=== PATIENT | female | born 1995 | race Caucasian/White ===

== ENCOUNTER 2019-05-10 16:55 | Emergency (ER) | payer OTHER ==
[2019-05-10 17:09] VITALS: BP 105/67; PULSE 69; TEMP 98; BMI 16.8
[2019-05-10] MEDS ORDERED: ONDANSETRON *ODT* 4 MG TABLET SL ONE (17:33)
--- NOTE | 2019-05-10 17:33 | PDOC ---
History of Present Illness - General Chief Complaint: Headache Stated Complaint: HEADACHE, Head contusion Time Seen by Provider: 05/10/19 17:33 - History of Present Illness Initial Comments: 05/10/19 17:33 CHIEF COMPLAINT: headache HISTORY OF PRESENT ILLNESS: 23 yo F with no significant PMH presents to ED with headache and nausea s/p head injury 2 days ago. Patient reports she was "playing around and pretending to hit my head with a meat tenderizer, but then I actually hit my head really hard with it." She reports the pain began two days ago, worsened yesterday, and today she is feeling nauseous , has double vision, and has pain is radiating down the right side of her neck. No recent travel or sick contacts. PAST MEDICAL HISTORY: Denies past medical history FAMILY HISTORY: Denies SOCIAL HISTORY: Denies tobacco, alcohol, illicit drug use. SURGICAL HISTORY: Denies ALLERGIES: opioids REVIEW OF SYSTEMS General/Constitutional: Denies fever or chills. Denies weakness, weight change. HEENT: "I feel like I have double vision." Denies ear pain or discharge. Denies sore throat. Cardiovascular: Denies chest pain or shortness of breath. Respiratory: Denies cough, wheezing, or hemoptysis. Gastrointestinal: Nausea today. Denies vomiting, diarrhea or constipation. Denies rectal bleeding. Genitourinary: Denies dysuria, frequency, or change in urination. Musculoskeletal: Denies joint or muscle swelling or pain. Denies neck or back pain. Skin and breasts: Denies rash or easy bruising. Neurologic: Denies headache, vertigo, loss of consciousness, or loss of sensation. Psychiatric: Denies depression or anxiety. PHYSICAL EXAM General Appearance: Well-appearing, appropriately dressed. No apparent distress , no intoxication. HEENT: EOMI, PERRLA, normal ENT inspection, normal voice, TMs normal, pharynx normal. No conjunctival pallor. No photophobia, scleral icterus. Neck: Supple. Trachea midline. No tenderness, rigidity, carotid bruit, stridor , lymphadenopathy, or thyromegaly. Respiratory/Chest: Lungs CTAB. No shortness of breath, chest tenderness, respiratory distress, accessory muscle use. No crackles, rales, rhonchi, stridor , wheezing, dullness Cardiovascular: RRR. S1, S2. No JVD, murmur, bradycardia, tachycardia. Vascular Pulses: Dorsalis-Pedis (R): 2+, Dorsalis-Pedis (L): 2+ Gastrointestinal/Abdominal: Normal bowel sounds. Abdomen soft, non-distended. No tenderness or rebound tenderness. No organomegaly, pulsatile mass, guarding , hernia, hepatomegaly, splenomegaly. Lymphatic: No adenopathy, tenderness. Musculoskeletal/Extremities: Normal inspection. FROM of all extremities, normal capillary refill. Pelvis Stable. No CVA tenderness. No tenderness to extremities, pedal edema, swelling, erythema or deformity. Integumentary: Appropriate color, dry, warm. No cyanosis, erythema, jaundice or rash Neurologic: plastic tile setter II-XII intact. Fully oriented, alert. Appropriate mood/affect. Motor strength 5/5. No appreciable EOM palsy, facial droop or sensory deficit. A&Ox3, follow commands, respond appropriately CN2-12: conjugate gaze, pupil round, equal and reactive to light. Visual field full to confrontation. EOMI without nystagmus, pursuit is smooth without saccade. Facial sensation and muscle activation intact bilaterally. Hearing intact bilaterally. Palate elevate symmetrically. Shoulder shrug and neck turn full strength. Tongue protrude midline. Motor: UE and LE strength 5/5 throughout bilaterally. Muscle tone and bulk normal. L shoulder abd 5/5 elbow F/E 5/5 wrist F/E 5/5 finger F/E 5/5 R shoulder abd 5/5 elbow F/E 5/5 wrist F/E 5/5 finger F/E 5/5 L hip F/E 5/5 knee F/E 5/5 ankle F/E 5/5 R hip F/E 5/5 knee F/E 5/5 ankle F/E 5/5 Sensory: pin prick & temp : BUE & BLE intact and equal bilaterally Vibration & propioception: intact bilaterally at 1st MCP and MTP joints. no sensory level noted on trunk Reflex: biceps brachioradialis triceps patellar achilles L 2+ 2+ 2+ 2+ 2+ R 2+ 2+ 2+ 2+ 2+ Plantar reflex downwards bilaterally. Cerebellar: Rapid-alternating movement with regular rhythm without bradykinesia. [id number] and [id number] intact bilaterally without dysmetria or overshoot. Gait narrow based. No shuffling. Full hip flexion and knee flexion. Negative Romberg No involuntary movement noted. No pronator drift. No clonus. Past History - Past Medical History Allergies/Adverse Reactions: Allergies Allergy/AdvReac Type Severity Reaction Status Date / Time Opioids - Morphine Analogues Allergy Verified 05/10/19 17:09 COPD: No Other medical history: does't take opoids - Psycho Social/Smoking Cessation Hx Smoking History: Current every day smoker Information on smoking cessation initiated: Yes Hx Alcohol Use: No Drug/Substance Use Hx: Yes (Marijuana) *Physical Exam - Vital Signs Last Vital Signs Temp Pulse Resp BP Pulse Ox 98 F 69 19 105/67 97 05/10/19 17:07 05/10/19 17:07 05/10/19 17:07 05/10/19 17:07 05/10/19 17:07 Medical Decision Making - Medical Decision Making 05/10/19 17:46 23 yo F with no significant PMH presents to ED with headache and nausea s/p head injury 2 days ago. -zofran -head CT Discussed with parents and patient risk first benefits of head CT including increased radiation. Parents and patient verbalized understanding and state they do want the CT to r/o any intracranial bleed. 05/10/19 19:02 CT negative for intracranial bleed. Incidental finding of "large 2.8 cm ovoid filling defect within the right maxillary sinus, which likely represents a mucous retention cyst." from Imaging resolute professional. Patient likely with post-concussive symptoms. Advised patient to take medication as prescribed and follow up with neurology if symptoms persist. Advised patient to f/u with ENT for further evaluation of mucous retention cyst. Advised patient of signs and symptoms for return to ED. Patient verbalized understanding and agrees to plan. Discharge - Discharge Information Problems reviewed: Yes Clinical Impression/Diagnosis: Post concussive syndrome, Mucous retention cyst Condition: Stable Disposition: HOME - Admission No - Follow up/Referral Referrals: iMchael Mueller MD [Staff Physician] - Nehemiah Kimball MD [Staff Physician] - - Patient Discharge Instructions Patient Printed Discharge Instructions: DI for Postconcussion Syndrome Additional Instructions: Please get plenty of rest without screen time for the next week. Avoid heavy exercise (light yoga is acceptable) or any other activities that can increase pressure to your head. Avoid excessive emotional, physical, or mental stress. Follow up with neurology if symptoms persist past 7-10 days. Follow up with ENT for further evaluation and management of your sinus cyst. If you develop any worsening headache, change in vision, persistent vomiting, change in behavior, difficulty speaking/swallowing/walking, or any new or worsening symptoms, please return to the ER. - Post Discharge Activity Work/Back to School Note: Back to Work
[2019-05-10] MEDS ORDERED: ONDANSETRON *ODT* 4 MG TABLET ONE (18:57)
== END 2019-05-10 19:16 | disposition home or self-care (01) ==
LOC: JER 16:55
DX: G44.319 Acute post-traumatic headache, not intractable (principal); F07.81 Postconcussional syndrome; W22.8XXA Striking against or struck by other objects, initial encounter; Y93.89 Activity, other specified; Y92.89 Other specified places as the place of occurrence of the external cause; Y99.8 Other external cause status
CPT/HCPCS: 70450-TC; 99282-25; Q0162